=== PATIENT | male | born 1975 | race Caucasian/White ===

== ENCOUNTER 2021-05-09 04:27 | Emergency (ER) | payer OTHER ==
[~2021-05-09] VITALS: Ht 182.9 cm; Wt 90.7 kg
[2021-05-09 04:29] VITALS: BP 147/77
[2021-05-09] MEDS ORDERED: SPORANOX100 MG PO (05:28)
== END 2021-05-09 05:50 | disposition home or self-care (01) ==
LOC: ER 04:27
DX: B35.1 Tinea unguium (principal); M79.675 Pain in left toe(s); F12.90 Cannabis use, unspecified, uncomplicated